=== PATIENT | male | born 1960 | race Caucasian/White ===

== ENCOUNTER → 2018-02-23 | Outpatient (CLI) | payer BC ==
[~2018-02-23] MED LIST: COLACE 100100 MG/CAP PO; GLUCOPHAGE500 MG/TAB PO; PERCOCET 325 MG1 TA2 PO; SYNTHROID0.075 MG/T PO; ZOFRAN 4MG T4 MG/TAB PO
== END ==
LOC: COL.LAB 16:30
DX: R06.02 Shortness of breath (principal)

== ENCOUNTER 2019-02-18 02:23 | Day surgery (SDC) | payer BC ==
[~2019-02-18] VITALS: Ht 190.5 cm; Wt 112.5 kg
[2019-02-18] VITALS (12 sets, daily range): BP systolic 103–131; BP diastolic 60–94; PULSE 54–84; TEMP 97.1–98.5
[2019-02-18 03:11] LABS: BASO # 0.1 (0.0-0.2); BASO % 0.7 % (0.0-2.0); EOS # 0.1 (0.0-0.7); EOS % 1.1 % (0-4.0); GRAN # 6.5 (1.4-6.5); GRAN % 77.7 % (42.2-75.2); HEMATOCRIT 44.6 % (42.0-52.0); HEMOGLOBIN 14.7 g/dl (13.5-18.0); LYMPH # 1.1 (1.2-3.4); LYMPH % 12.7 % (20.0-51.0); MEAN CELL VOLUME 87 fl (80.0-100.0); MEAN CORPUSCULAR HEMOGLOBIN 29 pg (27.0-31.0); MEAN CORPUSCULAR HGB CONC 33 g/dl (33.0-37.0); MEAN PLATELET VOLUME 10.3 fl (7.4-10.4); MONO # 0.6 (0.1-0.6); MONO % 7.3 % (1.7-9.3); PLATELET COUNT 266 K/mm3 (130-400); RED BLOOD COUNT 5.12 M/mm3 (4.20-5.60); REDCELL DISTRIBUTION WIDTH-CV 12.6 % (11.5-14.5)
[2019-02-18 03:22] LABS: ALANINE AMINOTRANSFERASE 12 U/L (21-72); ALBUMIN 4.5 gm/dL (3.5-5.0); ALKALINE PHOSPHATASE 105 U/L (50-136); ANION GAP 11 mmol/L (7-16); AST,SGOT 23 U/L (15-37); BILIRUBIN,TOTAL 0.5 mg/dL (0.0-1.0); BLOOD UREA NITROGEN 24 mg/dL (9-20); CALCIUM 10.3 mg/dL (8.4-10.2); CARBON DIOXIDE 25 mmol/L (22-30); CHLORIDE 100 mmol/L (98-107); CREATININE, serum 1.56 (0.66-1.25); LIPASE 139 U/L (23-300); POTASSIUM 5.4 mmol/L (3.4-5.0); SODIUM 136 mmol/L (137-145); TOTAL PROTEIN 7.1 gm/dL (6.4-8.2)
[2019-02-18 03:28] LABS: C-REACTIVE PROTEIN < 0.5 mg/dL (0.0-0.9); GLUCOSE 506 mg/dL (74-106)
[2019-02-18 03:32] LABS: COLLECTION METHOD CLEAN CATCH
[2019-02-18 03:39] LABS: PH 6 (5-8); SQUAMOUS EPITHELIAL None Seen /hpf; URINE APPEARANCE Clear; URINE BACTERIA None Seen /hpf; URINE BILIRUBIN Negative (NEGATIVE); URINE BLOOD 3+ (NEGATIVE); URINE GLUCOSE 3+ (NEGATIVE); URINE KETONE Negative (NEGATIVE); URINE LEUKOCYTE ESTERASE Negative (NEGATIVE); URINE NITRATE Negative (NEGATIVE); URINE PROTEIN(semi-quant) Negative (NEGATIVE); URINE RBC >50 /hpf; URINE UROBILINOGEN Negative (NEGATIVE)
[2019-02-18 03:40] LABS: URINE COLOR Red
[2019-02-18] MEDS ORDERED: SYNTHROID0.1 MG/TAB PO (04:15)
[2019-02-18] MEDS ORDERED: PRINIVIL10 MG PO (04:15)
[2019-02-18] MEDS ORDERED: ZOCOR 40MG40 MG PO (04:15)
[2019-02-18] MEDS ORDERED: LANTUS SOLOS100 U/ML SQ (04:16)
[2019-02-18] MEDS ORDERED: NOVOLOG FLEX100 U/ML SQ (04:16)
[2019-02-18] MEDS ORDERED: JANUMET 1000 MG1 TA1 PO (04:17)
--- NOTE | 2019-02-18 05:45 | NUR ---
PATIENT TO ROOM 350. ALERT AND ORIENTED. DENIES PAIN AT THIS TIME. AMBULATED TO BATHROOM. VOIDED RED TINGED URINED, STRAINED. LUNG SOUNDS CLEAR. VSS. HAND INSERTER OPERATOR SET UP IN ROOM. NS RUNNING. IV TO L HAND IS CD&I. SEE ASSESSMENT. NO FURTHER NEEDS AT THIS TIME.
--- NOTE | 2019-02-18 09:34 | NUR ---
Patient in bed resting. Alert and oriented x 3. Shift assessment complete. Patient states pain under control with PRICING ASSOCIATE. Denies further needs at this time. Will continue to monitor.
--- NOTE | 2019-02-18 12:19 | NUR ---
Patient down to OR
--- NOTE | 2019-02-18 14:20 | NUR ---
Patient up from OR via [employer]. Ambulated to restroom, steady gait. x1 assist. Voiding red-tinged urine. Denies pain at this time. Post op VSS. Denies further needs at this time. Will continue to monitor.
--- NOTE | 2019-02-18 15:19 | NUR ---
Plan: Plans to return home with Mary or . Assess: SW met with patient and in room. Patient gave permission to discuss information in front of spouse. Patient reports that they reside in town. Patient indicated that his is the EMR contact and sister in Law is back up -Mami Cadena . Patient denies the use or need for DME. indicated that she will transport patient home. Patient denies the need for any HHS. Patient reports PCP as Dr. Edwards and the use of [facility] for RX. Patient denies having any additional needs. Action: SW educated patient on DPOA, addtional resources in the community and HHS. No additonal needs identified.
[2019-02-18] MEDS ORDERED: NORCO 325 MG-51 TAB PO (15:25)
--- NOTE | 2019-02-18 16:51 | NUR ---
Discharge education provided to patient. Educated on signs and symptoms of infection. Educated on activity restrictions and increasing fluid intake. Patient tolerating oral intake without nausea/vomiting. IV discontinued, catheter tip intact. Denies pain or further needs at this time. Patient ambulated out with surgical staff and spouse.
== END 2019-02-18 16:57 | disposition home or self-care (01) ==
LOC: COL.ER 02:23 → SDCO 02:24 → COL.ER 04:19 → SURG 04:19 → SDCO 04:19 → SURG 16:57 → SDCO 16:57
PROVIDERS: Emergency Medicine
DX: N13.2 Hydronephrosis with renal and ureteral calculous obstruction (principal); E11.9 Type 2 diabetes mellitus without complications; Z79.4 Long term (current) use of insulin; Z90.5 Acquired absence of kidney; Z85.528 Personal history of other malignant neoplasm of kidney; Z79.899 Other long term (current) drug therapy; E87.5 Hyperkalemia; G47.33 Obstructive sleep apnea (adult) (pediatric)
CPT/HCPCS: C1769; C2617; J1100; J1815; J2270; J2405; J2704; J3010; J7030; Q9967

== ENCOUNTER → 2020-10-05 | Outpatient (CLI) | payer BC ==
[~2020-10-05] MED LIST changes: +JANUMET 1000 MG1 TA1 PO; +LANTUS SOLOS100 U/ML SQ; +NORCO 325 MG-51 TAB PO; +NOVOLOG FLEX100 U/ML SQ; +PRINIVIL10 MG PO; +SYNTHROID0.1 MG/TAB PO; +ZOCOR 40MG40 MG PO
== END ==
LOC: COL.RAD 14:09
DX: Z90.5 Acquired absence of kidney (principal); C64.2 Malignant neoplasm of left kidney, except renal pelvis

== ENCOUNTER 2020-10-24 09:00 | Outpatient (RCR) | payer BC | END 2020-11-10 15:13 | disposition home or self-care (01) | LOC: WSOT 09:00 | DX: M72.0 Palmar fascial fibromatosis [Dupuytren] (principal) ==

== ENCOUNTER → 2021-09-19 | Outpatient (CLI) | payer BC | LOC: COL.RAD 09:31 | DX: C64.2 Malignant neoplasm of left kidney, except renal pelvis (principal) ==

== ENCOUNTER 2021-12-09 05:51 | Emergency (ER) | payer BC ==
[~2021-12-09] VITALS: Ht 190.5 cm; Wt 113.6 kg
[2021-12-09 05:55] VITALS: TEMP 98.3
[2021-12-09 06:15] LABS: COLLECTION METHOD CLEAN CATCH
[2021-12-09 06:16] LABS: BASO # 0.1 K/mm3 (0.0-0.2); BASO % 1.4 % (0.0-2.0); EOS # 0.2 K/mm3 (0.0-0.7); EOS % 2.4 % (0.0-4.0); GRAN # 4.5 K/mm3 (1.4-6.5); GRAN % 63.1 % (42.2-75.2); HEMATOCRIT 38.1 % (42.0-52.0); HEMOGLOBIN 12.3 g/dl (13.5-18.0); LYMPH # 1.8 K/mm3 (1.2-3.4); LYMPH % 24.5 % (20.0-51.0); MEAN CELL VOLUME 85 fl (80.0-100.0); MEAN CORPUSCULAR HEMOGLOBIN 27 pg (27-31); MEAN CORPUSCULAR HGB CONC 32 g/dl (33.0-37.0); MEAN PLATELET VOLUME 9.7 fl (7.4-10.4); MONO # 0.6 K/mm3 (0.1-0.6); MONO % 7.9 % (1.7-9.3); PLATELET COUNT 325 K/mm3 (130-400); RED BLOOD COUNT 4.49 M/mm3 (4.20-5.60); REDCELL DISTRIBUTION WIDTH-CV 13.1 % (11.5-14.5)
[2021-12-09 06:20] LABS: PH 5 (5-8); SQUAMOUS EPITHELIAL None Seen /hpf (0-10); URINE APPEARANCE Clear (CLEAR/HAZY); URINE BACTERIA None Seen /hpf (NONE SEEN); URINE BLOOD Negative (NEGATIVE); URINE COLOR Yellow (YELLOW); URINE GLUCOSE Negative (NEGATIVE); URINE KETONE Negative (NEGATIVE); URINE NITRATE Negative (NEGATIVE); URINE PROTEIN(semi-quant) Negative (NEGATIVE); URINE RBC 0-2 /hpf (0-2); URINE UROBILINOGEN Negative (NEGATIVE)
[2021-12-09 06:31] LABS: MUCOUS Present (NOT PRESENT)
[2021-12-09 06:35] LABS: BILIRUBIN,TOTAL 0.3 mg/dL (0.2-1.2); CALCIUM 9.1 mg/dL (8.4-10.2); CREATININE, serum 1.41 mg/dL (0.72-1.25); POTASSIUM 3.9 mmol/L (3.5-4.5); TOTAL PROTEIN 6.7 gm/dL (6.2-8.1)
[2021-12-09 07:00] VITALS: BP 145/81; PULSE 80
== END 2021-12-09 07:05 | disposition home or self-care (01) ==
LOC: COL.ER 05:51
PROVIDERS: Emergency Medicine
DX: R39.198 Other difficulties with micturition (principal); Z90.5 Acquired absence of kidney